=== PATIENT | male | born 1970 | race Caucasian/White ===

== ENCOUNTER 2019-02-14 04:40 | Emergency (ER) | payer OTHER, SELFPAY ==
[2019-02-14 04:41] VITALS: BP 139/98; PULSE 73; RESP 17; TEMP 36.5; O2SAT 98; BMI 23.7
[2019-02-14 04:48] VITALS: O2SAT 98
--- NOTE | 2019-02-14 04:51 | RAD_ITS ---
STUDY: X-RAY - UNILATERAL RIBS ( LEFT ) WITH CHEST REASON FOR EXAM: Male, 48 years old. Left anterior rib pain after fall at work. TECHNIQUE - RIBS: 4 view(s) of the ribs. TECHNIQUE - CHEST: 1 COMPARISON: None. FINDINGS - RIBS: Normal visualized ribs without a demonstrated fracture. FINDINGS - CHEST: The lungs are clear and expanded. There is no demonstrated pleural abnormality. Normal size heart. Normal mediastinum and xin. Normal visualized pulmonary arteries. Normal visualized aortic arch and descending thoracic aorta. Normal visualized thoracic spine. Normal visualized ribs, clavicles, and shoulders. There is no demonstrated abnormality of the visualized soft tissue structures of the upper abdomen. RAD/Ribs Uni Min 3V w/PA Chest IMPRESSION: RIBS: Normal x-ray examination of the ribs. CHEST: Normal x-ray examination of the chest. Electronically Signed: Michael Rodriguez MD at 5:31 EDT , Service support ,
--- NOTE | 2019-02-14 04:52 | ED.VISSUMM ---
- ER Visit Summary Date of Service: 02/14/19 Chief Complaint: Fall History of Present Illness: The patient is a 48 M who presents with left rib pain that began after a fall today at work. Patient states he fell approximately 3 feet and landed on his left side. Patient states he stretched and felt a pop in his left chest. Patient states he has some pain with deep breathing. Patient denies any shortness of breath however. Patient describes the pain is dull. Patient denies any head injury or loss of consciousness. Patient denies any paresthesias or weakness. Patient denies any other injuries. Physical Examination: Vital signs are stable. Patient is afebrile. Patient is in no acute distress. Oral mucosa is pink and moist. Neck is supple. Trachea is midline. There is no JVD. Heart was regular rate and rhythm. Lungs are clear and equal bilaterally. There is left lower and lateral chest wall tenderness. There is no bony crepitance or step-off noted. Abdomen is soft and nontender. There is no tenderness over the thoracic or lumbar spine. Patient is standing and ambulating in the emergency department without difficulty. Cranial nerves II through XII are intact. There are no focal motor or sensory deficits noted. Test Results: X-rays of the left ribs were obtained. There is no acute fracture. There is no acute cardiopulmonary process. These were interpreted by the radiologist and reviewed by myself. Emergency Department Course and Treatment: Patient was instructed to use ice to the area. Patient was given a prescription for Naprosyn. Patient was instructed to follow-up with his primary care physician or [facility] in 5 to 7 days. Patient understood and was agreeable with the plan. All questions were answered. Disposition: Discharge home Impression: Chest wall contusion This note was generated with [employer] dictation software. It may contain incorrect words, spelling, and punctuation that were not noted in review of the chart prior to signing ED Disposition - Plan for ED Patient: Disposition: Home or Assisted Living Diagnosis: Chest wall contusion Instructions: Chest Wall Contusion Prescriptions: Naproxen [Naprosyn] 500 mg PO BID PRN #20 tab Prescription Printed Referrals: Care Physician,No Primary [[facility]STAFF[facility] - [facility] OF PHYSICIANS] - 3-5 Days
[2019-02-14 05:48] VITALS: RESP 17
== END 2019-02-14 05:49 | disposition home or self-care (01) ==
PROVIDERS: Emergency Provider Emergency Medicine
DX: S20.212A Contusion of left front wall of thorax, initial encounter (principal); W17.89XA Other fall from one level to another, initial encounter; Y93.9 Activity, unspecified; Y92.9 Unspecified place or not applicable; F17.200 Nicotine dependence, unspecified, uncomplicated
CPT/HCPCS: 71101; 99283

== ENCOUNTER 2024-08-31 03:02 | Emergency (ER) | payer BC, SELFPAY ==
[2024-08-31 03:03] VITALS: BP 157/90; PULSE 98; RESP 18; TEMP 36.9; O2SAT 97; BMI 29.8
[2024-08-31 03:07] VITALS: O2SAT 97
--- NOTE | 2024-08-31 03:31 | RAD_ITS ---
PROCEDURE: CHEST PA AND LATERAL REASON FOR EXAM: Nasal congestion. Cough. Body aches. Chills TECHNIQUE: Frontal and lateral views of the chest. COMPARISON: None. FINDINGS: Mild hyperinflation. Minimal atelectasis within the lung bases. No focal airspace consolidation, pn eumothorax or pleural effusion is seen. Heart size is within normal limits. Mild tortuosity involving the thoracic aorta. Slight dextrocurvature involving the midthoracic spine. RAD/Chest PA and Lateral IMPRESSION: Mild hyperinflation, without focal airspace consolidation. Reading Location: [facility]
[2024-08-31] MEDS: predniSONE 20 MG Tablet 60 MG PO (03:38)
[2024-08-31 04:11] VITALS: PULSE 92; RESP 18
[2024-08-31] MEDS: Ipratropium/Albuterol Sulfate 3 ML AMPUL.NEB INHALATION (04:11)
[2024-08-31 04:48] VITALS: BP 134/89; PULSE 94; RESP 18; TEMP 36.6; O2SAT 95
--- NOTE | 2024-08-31 04:48 | EX.ED.DYSGE1 ---
HPI History of Present Illness Chief Complaint: Cold Sx Informant: patient Narrative Narrative: Patient is a 54-year-old male with past medical history of smoking but who denies any previous diagnosis of COPD emphysema or need for supplemental oxygen. He states over the last 2 days he has had increased congestion cough fatigue and shortness of breath. He denies any known sick contacts. However with his worsening shortness of breath he presents for evaluation [facility] Medical History (Updated 08/31/24 @ 14:[address] Andres Ocasio, DO) Smoker History of COVID-19 Home Medications ?Medication ?Instructions ?Recorded ?Last Taken ?Type prednisone 20 mg tablet 40 mg (2 x 20 mg) PO DAILY 5 days 08/31/24 Unknown Rx #10 tabs Allergy/AdvReac Type Severity Reaction Status Date / Time Penicillins Allergy Anaphylaxis Verified 08/31/24 03:03 Family History no significant family his Surgical History no surgical history Social History Smoking Status: Current every day smoker tobacco type: cigarettes ROS ROS ED Constitutional Constitutional ED: Denies chills or fever(s) ENT ENT ED: Reports rhinorrhea and sore throat Cardiovascular Cardiovascular: Denies chest pain, palpitations or racing heartbeat Respiratory/Chest Respiratory/Chest: Reports cough and dyspnea Gastrointestinal Gastrointestinal: Denies abdominal pain, diarrhea, nausea or vomiting Genitourinary Genitourinary ED: Denies dysuria Musculoskeletal Musculoskeletal: Reports myalgias Integumentary Denies rash Neurologic Neurologic: Denies headache(s) Hematologic/Lymphatic Hematologic/Lymphatic: Denies easy bleeding or easy bruising Allergic/Immunologic Allergic/Immunologic ED: Denies mouth swelling or tongue swelling EXAM Physical Exam Const Vital Signs: 08/31/24 03:03 08/31/24 03:05 08/31/24 03:07 Temperature 98.5 F Temperature Source Oral Pulse Rate 98 Respiratory Rate 18 Respiratory Effort Normal Non-Labored Normal Non-Labored Respiratory Depth Shallow Respiratory Pattern Normal Normal Blood Pressure 157/90 H Blood Pressure Mean 112 Pulse Ox 97 Oxygen Delivery Method Room Air Room Air 08/31/24 04:11 08/31/24 04:48 Temperature 97.9 F Temperature Source Pulse Rate 92 94 Respiratory Rate 18 18 Respiratory Effort Respiratory Depth Respiratory Pattern Normal Blood Pressure 134/89 H Blood Pressure Mean 104 Pulse Ox 95 Oxygen Delivery Method Positive well nourished and well developed General Appearance ED: well developed; Negative for pallor HEENT HEENT Narrative: Nasal mucosa is hyperemic and boggy There is cobblestoning noted in the posterior pharynx consistent with sinus drainage without airway edema or compromise; no secondary findings in the posterior pharynx to suggest infection Bilateral TMs are retracted without changes to suggest infection Eyes PERRL and EOMs intact bilaterally Neck supple and no JVD Resp normal respiratory effort Resp Narrative: Breath sounds are diminished throughout with faint rhonchi and expiratory wheeze in the bilateral lower lobes but no signs of respiratory distress Cardio regular rate and regular rhythm Extremity normal to inspection Extremity Narrative: No asymmetric edema no pitting edema negative Homans' sign bilaterally Neuro oriented x3, CN's II-XII intact bilaterally and no sensory deficits noted Sensorium / Orientation: alert Motor Exam: strength 5/5 throughout Psych mental status grossly normal Skin no rashes or lesions noted General Skin Exam: Negative for jaundice or pallor MDM MDM MDM Narrative Medical decision making narrative: Patient arrived to the ER hypertensive otherwise with stable vitals and in no acute respiratory distress. Constellation of symptoms is concerning for pneumonia versus viral infection such as COVID influenza or RSV. As the patient is not in acute respiratory distress nor require supplemental oxygen do not feel the need for blood work but will obtain a chest x-ray to check for lung pathology such as pneumonia or pneumothorax and viral swab as COVID and influenza are frequent at this time. Patient's chest x-ray revealed no signs of acute pathology such as pneumonia pneumothorax or pleural effusion. Influenza swab is positive consistent with his history and exam. After receiving steroids and breathing treatment his breath sounds improved and he remained in no acute respiratory distress or hypoxia. Therefore at this time there is no need for further intervention and can be discharged home with symptomatic care History & Record Review Discussion w/independent historian: Patient Radiography Diagnostic Testing: Clinical Impression(s) from Imaging Studies Chest X-Ray 08/31/24 03:31 IMPRESSION: Mild hyperinflation, without focal airspace consolidation. Reading Location: [facility] Discharge Plan Triage Chief Complaint: Cold Sx ED Provider: Andres Ocasio Dx/Rx/DC Orders Clinical Impression: Influenza A, Tobacco abuse Instructions: ED URI, Viral W/ Wheezing (Adult) Prescriptions: New prednisone 20 mg tablet 40 mg PO DAILY 5 Days Qty: 10 0RF Stand Alone Forms: ED Work / School Excuse Primary Care Provider: Care Physician,No Primary Referrals: Mata Parkinson MD [Med Staff - Active Staff] - Care Physician,No Primary [Primary Care Provider] - Activity Restrictions/Additional Instructions: Your x-ray does not show pneumonia and your test for COVID influenza and RSV was negative. Your symptoms are consistent with another type of viral infection which will take on average 14 days to resolve. Treat your congestion and shortness of breath sensation with the provided inhaler and steroid and return to the ER should give any further concern Print Language: Hungarian Disposition Disposition: Home, Self Care Discharge Date/Time: 08/31/24 05:03
[2024-08-31] MEDS: Albuterol Sulfate 8 gm Inhaler (60 puffs) 2 PUFF INHALATION (04:56)
== END 2024-08-31 05:03 | disposition home or self-care (01) ==
PROVIDERS: Emergency Provider Emergency Medicine; Visit Provider Emergency Medicine
DX: J10.1 Influenza due to other identified influenza virus with other respiratory manifestations (principal); F17.210 Nicotine dependence, cigarettes, uncomplicated; Z86.16 Personal history of COVID-19
CPT/HCPCS: 71046; 87631; 94640; 99283